=== PATIENT | female | born 1990 | race Caucasian/White ===

== ENCOUNTER 2017-09-05 23:18 | Emergency (ER) | payer SELFPAY ==
[~2017-09-05] VITALS: Ht 154.9 cm; Wt 83.9 kg
[~2017-09-05 23:18] MED LIST: BACT800T5 PO; IBUP600T26 PO
[2017-09-06] MEDS ORDERED: ACETAMINOPHEN/HYDROcodone 325 MG/10 MG TAB PO STA (00:09)
[2017-09-06] MEDS ORDERED: MACR100C2 PO (00:18)
[2017-09-06] MEDS ORDERED: HYDR-3288 PO (00:18)
--- NOTE | 2017-09-06 00:20 | PD ---
HPI Chief Complaint Back pain radiating into the inguinal region Date Seen: Sep 06, 2017 Time Seen: 00:11 Travel History International Travel<30 Days: No Contact w/Intl Traveler<30Days: No Known Affected Area: No History of Present Illness HPI 27-year-old who is at 26 weeks and 3 days comes in complaining of right- sided back pain radiating into the right inguinal region. Patient states that she had a diagnosis of kidney stones about 4 weeks ago and this was treated with hydration and antibiotic therapy. Renal ultrasound showed that she had 2 additional stones up in the kidneys and the doctor indicated that she would most likely pass those at some point during the . Patient stated that the back pain started early this morning and then she began to have radiation into the inguinal region as the day progressed. Patient denies fever, contractions, or abdominal pain. She has good movement. Weeks Gestation: 26 Para: 3 : 7 Last Menstrual Period: Sep 06, 2017 Miscarriage: 3 History Past Medical History Narrative Medical Nephrolithiasis diagnosed this Obstetric History Obstetric History Spontaneous vaginal delivery 3, care in [place] and Dr. Morton Past Surgical History Surgical History: No Previous Surgery Family History Family History: Negative Social History Alcohol Use: No Tobacco Use: No Substance Abuse: No Allergies-Medications (Allergen,Severity, Reaction): Coded Allergies: No Known Allergies (Unverified , 09/16/16) Home Meds Active Scripts Ibuprofen (Ibuprofen) 600 Mg Tab, 600 MG PO TID for Pain for 5 Days, TAB Prov:Jhonny Jaime MD 01/08/16 Sulfamethoxazole-Trimethoprim DS (Bactrim DS) 1 Tab Tab, 1 TAB PO BID for 7 Days , TAB Prov:Jhonny Jaime MD 01/08/16 Review of Systems Except as stated in HPI: all other systems reviewed are Neg Physical Exam Narrative GENERAL: Well-nourished, well-developed patient. SKIN: Warm and dry. HEAD: Normocephalic and atraumatic. EYES: No scleral icterus. No injection or drainage. ENT: No nasal drainage noted. Mucous membranes pink. Airway patent. NECK: Supple, trachea midline. No JVD.. ABDOMEN/GI: Abdomen soft, non-tender, bowel sounds present, no rebound, no guarding no CVA tenderness Gravid to [26-] weeks size, no inguinal or round ligament tenderness Fundal Height: [-] GENITOURINARY: Deferred Uterine Contractions: [Absent-] FHT's: Category: [-1] Baseline: [140-] Reactive: [-Moderate] Variability: [-Moderate] Decels: [Absent-] EXTREMITIES: No cyanosis or edema. BACK: Nontender without obvious deformity. No CVA tenderness. NEUROLOGICAL: Awake and alert. Motor and sensory grossly within normal limits. Five out of 5 muscle strength in all muscle groups. Normal speech. Urine dip is positive for blood and leukocytes. Negative for nitrites or leukocyte esterase Data Data Orders Orders Vital Signs (Adult) .ON ADMISSION (09/06/17 00:09) ^ Labor Status (09/06/17 00:09) Urinalysis - C+S If Indicated (09/06/17 00:09) ^ Hydration (09/06/17 00:09) Acetamin-Hydrocod 325-10 Mg ([place] 10-32 (09/06/17 00:09) MDM Medical Record Reviewed: Yes Plan 27-year-old who is at 26 weeks 3 days with a history of diagnosed kidney stones 4 weeks ago most likely with another stone at this point Patient is somewhat uncomfortable but not in severe pain and has no signs of infection Will treat with outpatient pain management, hydration, and prophylactic antibiotic She will need a follow-up to her OB provider to ensure that she has resolution and understands that she needs to return back to the hospital for fever or worsening pain Will send her urine for culture Diagnosis Diagnosis: Primary Impression: 26 weeks gestation of Additional Impressions: Back pain affecting in second trimester Kidney stone complicating Disposition: DISCHARGE HOME Scripts Nitrofurantoin Monohydrate Macrocrystals (Macrobid) 100 Mg Cap 100 MG PO BID for Infection, #14 CAP 0 Refills Prov: Deepti Chandler MD 09/06/17 Hydrocodone-Acetaminophen ([place]) 7.5-325 mg Tab 1 TAB PO Q6H Y for PAIN, #20 TAB 0 Refills Prov: Deepti Chandler MD 09/06/17 Deepti Chandler MD Sep 06, 2017 00:20
[2017-09-06 00:24] LABS: BACTERIA, URINE OCC /hpf; BLOOD, URINE MOD (NEG); COMMENT (UR) CULTURE INDICATED; CULTURE IF INDICATED CULTURE INDICATED; GLUCOSE,URINE NEG (NEG); KETONE, URINE TRACE mg/dL (NEG); MUCUS URINE FEW /lpf (OCC); NITRITE,URINE NEG (NEG); SQUAMOUS EPITHELIAL CELL URINE 20 /hpf (0-5); URINE COLOR YELLOW (YELLW/STRAW)
== END 2017-09-06 00:26 | disposition home or self-care (01) ==
LOC: HOBED 23:18
DX: O26.892 Other specified pregnancy related conditions, second trimester (principal); M54.9 Dorsalgia, unspecified; Z3A.26 26 weeks gestation of pregnancy
CPT/HCPCS: 81001; 87086; 99283